=== PATIENT | male | born 1975 | race Caucasian/White ===

== ENCOUNTER 2020-09-04 18:39 | Emergency (ER) | payer BC ==
[2020-09-04] MEDS ORDERED: Sodium Chloride 0.9% 10 ML Syringe FLUSH PRN (18:50)
[2020-09-04] MEDS ORDERED: HYDROmorphone 1 MG/ML Syringe IVPUSH ONE (18:52)
[2020-09-04] MEDS ORDERED: Piperacillin/Tazobactam 4.5 GM in Sodium Chloride 0.9% 100 ML IV ONE (18:52)
[2020-09-04] MEDS ORDERED: Diphtheria,Pertussis(Acell),Tetanus Vaccine 0.5 ML Syringe IM ONE (18:54)
[2020-09-04] MEDS ORDERED: Lactated Ringers 1,000 ML IV SCH (19:00)
--- NOTE | 2020-09-04 20:06 | EDM.PDOC ---
ED HPI GENERAL MEDICAL PROBLEM - General Chief Complaint: Lower Extremity Injury/Pain Stated Complaint: FOOT INJURY Time Seen by Provider: 09/04/20 18:47 Source of Information: Reports: Patient, Family History Limitations: Reports: No Limitations - History of Present Illness INITIAL COMMENTS - FREE TEXT/NARRATIVE: The patient presents with a left foot laceration. 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 He has no other injuries. His tetanus is not up to date. He has no fever, chills, cough, congestion, runny nose, chest pain or shortness of breath. He has no medical problems. He last ate at 9:30 am. Onset: Sudden Duration: Minutes: Location: Reports: Lower Extremity, Right (foot) Quality: Reports: Sharp Severity: Severe Improves with: Reports: Immobilization Worsens with: Reports: Movement Context: Reports: Trauma (stepped on by cow) Associated Symptoms: Reports: No Other Symptoms Left Feet Pain Score (Numeric/FACES): 10 - Related Data Allergies Allergy/AdvReac Type Severity Reaction Status Date / Time No Known Allergies Allergy Verified 09/25/14 19:53 Home Meds: Home Meds Hydrocodone/Acetaminophen [Hydrocodone-Acetamin 5-325 mg] 1 - 2 each PO Q6H PRN #15 tablet 09/04/20 [Rx] cephALEXin [Keflex] 500 mg PO Q6H #40 cap 09/04/20 [Rx] Past Medical History Other Musculoskeletal History: femoral hernia Review of Systems - Review of Systems Review Of Systems: See Below Constitutional: Reports: No Symptoms Eyes: Reports: No Symptoms Ears: Reports: No Symptoms Nose: Reports: No Symptoms Mouth/Throat: Reports: No Symptoms Respiratory: Reports: No Symptoms Cardiovascular: Reports: No Symptoms GI/Abdominal: Reports: No Symptoms Genitourinary: Reports: No Symptoms Musculoskeletal: Reports: Other (Left foot injury) ED EXAM, GENERAL - Physical Exam Exam: See Below Exam Limited By: No Limitations General Appearance: Alert, Moderate Distress Ears: Normal External Exam Nose: Normal Inspection Head: Atraumatic, Normocephalic Neck: Normal Inspection Respiratory/Chest: No Respiratory Distress, Lungs Clear, Normal Breath Sounds Cardiovascular: Regular Rate, Rhythm, No Edema, No Murmur GI/Abdominal: Soft, Non-Tender, No Organomegaly, No Mass Extremities: Other (2nd and 3rd toes both have lacerations and near degloving) ED TRAUMA EXTREMITY PROCEDURES - Laceration/Wound Repair Left Foot Lac/Wound Length In cm: 10 Appearance: Subcutaneous, Irregular, Clean Distal NVT: Neuro & Vascular Intact, No Tendon Injury Anesthetic Type: Local Local Anesthesia - Lidocaine (Xylocaine): 1% Plain Skin Prep: Saline Saline Irrigation (cc's): 500 Exploration/Debridement/Repair: Wound Explored, In a Bloodless Field, Explored to Base Closed With: Sutures Suture Size: 4-0 # of Sutures: 17 Suture Type: Nylon, Interrupted, Simple Tetanus Status Addressed: Yes Complications: No Course - Vital Signs Last Recorded V/S: Last Vital Signs Temp 97.1 F 09/04/20 18:54 Pulse 107 H 09/04/20 18:54 Resp 24 H 09/04/20 18:54 BP 130/94 H 09/04/20 18:54 Pulse Ox 91 L 09/04/20 18:54 - Orders/Labs/Meds Orders: Active Orders 24 hr Category Date Time Status Cardiac Monitoring [RC] . DIRECTED Care 09/04/20 18:50 Active Peripheral IV Care [RC] . DIRECTED Care 09/04/20 18:51 Active Vaccines to be Administered [RC] PER UNIT ROUTINE Care 09/04/20 18:56 Active Foot Comp Min 3V Lt [CR] Stat Exams 09/04/20 18:51 Taken Lactated Ringers [Ringers, Lactated] 1,000 ml Med 09/04/20 19:00 Active IV ASDIRECTED Sodium Chloride 0.9% [Saline Flush] Med 09/04/20 18:50 Active 10 ml FLUSH ASDIRECTED PRN Peripheral IV Insertion Adult [OM.PC] Stat Oth 09/04/20 18:50 Ordered Medication Orders Lactated Ringer's (Ringers, Lactated) 1,000 mls @ 125 mls/hr IV ASDIRECTED RAMSEY Last Admin: 09/04/20 19:27 Dose: 125 mls/hr Documented by: ELO Sodium Chloride (Sodium Chloride 0.9% 10 Ml Syringe) 10 ml FLUSH ASDIRECTED PRN PRN Reason: Keep Vein Open Last Admin: 09/04/20 19:42 Dose: 10 ml Documented by: ELO Labs: Laboratory Tests 09/04/20 09/04/20 Range/Units 18:50 18:50 WBC 5.47 (4.23-9.07) K/mm3 RBC 5.60 (4.63-6.08) M/mm3 Hgb 15.9 (13.7-17.5) gm/dl Hct 45.6 (40.1-51.0) % MCV 81.4 (79.0-92.2) fl MCH 28.4 (25.7-32.2) pg MCHC 34.9 (32.2-35.5) g/dl RDW Std Deviation 38.3 (35.1-43.9) fL Plt Count 234 (163-337) K/mm3 MPV 11.0 (9.4-12.3) fl Neut % (Auto) 53.2 (34.0-67.9) % Lymph % (Auto) 31.6 (21.8-53.1) % [place] % (Auto) 12.1 (5.3-12.2) % Eos % (Auto) 1.8 (0.8-7.0) Baso % (Auto) 0.9 (0.1-1.2) % Neut # (Auto) 2.91 (1.78-5.38) K/mm3 Lymph # (Auto) 1.73 (1.32-3.57) K/mm3 [place] # (Auto) 0.66 (0.30-0.82) K/mm3 Eos # (Auto) 0.10 (0.04-0.54) K/mm3 Baso # (Auto) 0.05 (0.01-0.08) K/mm3 Sodium 142 (136-145) mEq/L Potassium 3.8 (3.5-5.1) mEq/L Chloride 105 (98-107) mEq/L Carbon Dioxide 22 (21-32) mEq/L Anion Gap 18.8 H (5-15) BUN 15 (7-18) mg/dL Creatinine 1.6 H (0.7-1.3) mg/dL Est Cr Clr Drug Dosing 70.42 mL/min Estimated GFR (MDRD) 47 (>60) mL/min BUN/Creatinine Ratio 9.4 L (14-18) Glucose 138 H (70-99) mg/dL Calcium 9.1 (8.5-10.1) mg/dL Total Bilirubin 0.5 (0.2-1.0) mg/dL AST 27 (15-37) U/L ALT 66 H (16-63) U/L Alkaline Phosphatase 57 (46-116) U/L Total Protein 7.5 (6.4-8.2) g/dl Albumin 4.3 (3.4-5.0) g/dl Globulin 3.2 gm/dL Albumin/Globulin Ratio 1.3 (1-2) Meds: Medications Generic Name Dose Route Start Last Admin Trade Name Freq PRN Reason Stop Dose Admin Lactated Ringer's 1,000 mls @ 125 mls/hr 09/04/20 19:00 09/04/20 19:27 Ringers, Lactated IV 125 mls/hr ASDIRECTED RAMSEY Administration Sodium Chloride 10 ml 09/04/20 18:50 09/04/20 19:42 Sodium Chloride 0.9% 10 Ml Syringe FLUSH 10 ml ASDIRECTED PRN Administration Keep Vein Open Discontinued Medications Generic Name Dose Route Start Last Admin Trade Name Freq PRN Reason Stop Dose Admin Diphtheria/Tetanus/Acell Pertussis 0.5 ml 09/04/20 18:54 09/04/20 19:44 Diphtheria,Pertussis(Acell),Tetanus Vaccine 0.5 Ml Syringe IM 09/04/20 18:55 0.5 ml .ONCE ONE Administration Hydromorphone HCl 1 mg 09/04/20 18:52 09/04/20 19:19 Hydromorphone 1 Mg/Ml Syringe IVPUSH 09/04/20 18:53 1 mg ONETIME ONE Administration Hydromorphone HCl 0.5 mg 09/04/20 20:33 09/04/20 20:40 Hydromorphone 0.5 Mg/0.5 Ml Syringe IVPUSH 09/04/20 20:34 0.5 mg ONETIME ONE Administration Piperacillin Sod/Tazobactam 100 mls @ 200 mls/hr 09/04/20 18:52 09/04/20 19:19 Sod 4.5 gm/ Sodium Chloride IV 09/04/20 19:21 200 mls/hr ONETIME ONE Administration Lidocaine HCl 20 ml 09/04/20 20:08 09/04/20 20:40 Lidocaine 1% 20 Ml Mdv INJECT 09/04/20 20:09 20 ml ONETIME ONE Administration Lidocaine HCl 20 ml 09/04/20 20:11 09/04/20 20:40 Lidocaine 1% 10 Ml Mdv INJECT 09/04/20 20:12 20 ml ONETIME ONE Administration - Re-Assessments/Exams Free Text/Narrative Re-Assessment/Exam: 09/04/20 20:06 I ordered an IV LR at 125ml/hr, dilaudid, zosyn 4.5grams IV, labs and an x-ray. His labs look good. The x-ray does not show any fracture. 09/04/20 21:20 I was able to suture the skin back. The tendons were intact. I called Dr Noguera and he will see him tomorrow. I will get him on keflex, a walking boot and something for pain. Departure - Departure Time of Disposition: 21:25 Disposition: Home, Self-Care 01 Condition: Good Clinical Impression: Crush injury of left foot Qualifiers: Encounter type: initial encounter Qualified Code(s): S97.82XA - Crushing injury of left foot, initial encounter Laceration of left foot Qualifiers: Encounter type: initial encounter Qualified Code(s): S91.312A - Laceration without foreign body, left foot, initial encounter - Discharge Information *PRESCRIPTION DRUG MONITORING PROGRAM REVIEWED*: Not Applicable *COPY OF PRESCRIPTION DRUG MONITORING REPORT IN PATIENT KAT: Not Applicable Prescriptions: Hydrocodone/Acetaminophen [Hydrocodone-Acetamin 5-325 mg] 1 - 2 each PO Q6H PRN #15 tablet PRN Reason: Pain cephALEXin [Keflex] 500 mg PO Q6H #40 cap Referrals: PCP,None [Primary Care Provider] - Hema Noguera MD [Physician] - 1 Day Forms: ED Department Discharge Additional Instructions: Soak your foot in warm soapy water 2 times per day and apply antibiotic ointment after. Take the keflex 4 times per day for 10 days. Take tylenol or motrin for pain. If that does not help, try the hydrocodone. Wear the walking boot to protect the laceration. Follow up with Dr Noguera tomorrow at 9:30. You do not need to call just show up. Please return if you are worse. Sepsis Event Note (ED) - Evaluation Sepsis Screening Result: No Definite Risk - Focused Exam Vital Signs: Vital Signs Temp Pulse Resp BP Pulse Ox 09/04/20 18:54 97.1 F 107 H 24 H 130/94 H 91 L - My Orders Last 24 Hours: My Active Orders 09/04/20 18:50 Cardiac Monitoring [RC] . DIRECTED Sodium Chloride 0.9% [Saline Flush] 10 ml FLUSH ASDIRECTED PRN Peripheral IV Insertion Adult [OM.PC] Stat 09/04/20 18:51 Peripheral IV Care [RC] . DIRECTED Foot Comp Min 3V Lt [CR] Stat 09/04/20 18:56 Vaccines to be Administered [RC] PER UNIT ROUTINE 09/04/20 19:00 Lactated Ringers [Ringers, Lactated] 1,000 ml IV ASDIRECTED - Assessment/Plan Last 24 Hours: My Active Orders 09/04/20 18:50 Cardiac Monitoring [RC] . DIRECTED Sodium Chloride 0.9% [Saline Flush] 10 ml FLUSH ASDIRECTED PRN Peripheral IV Insertion Adult [OM.PC] Stat 09/04/20 18:51 Peripheral IV Care [RC] . DIRECTED Foot Comp Min 3V Lt [CR] Stat 09/04/20 18:56 Vaccines to be Administered [RC] PER UNIT ROUTINE 09/04/20 19:00 Lactated Ringers [Ringers, Lactated] 1,000 ml IV ASDIRECTED
[2020-09-04] MEDS ORDERED: Lidocaine 1% 20 ML MDV INJECT ONE (20:08)
[2020-09-04] MEDS ORDERED: Lidocaine 1% 10 ML MDV INJECT ONE (20:11)
[2020-09-04] MEDS ORDERED: HYDROmorphone 0.5 MG/0.5 ML Syringe IVPUSH ONE (20:33)
[2020-09-04 22:00] VITALS: BP 143/84; PULSE 89
--- NOTE | 2020-09-05 06:35 | CR ---
Left foot: 4 views of the left foot were obtained. Comparison: No prior foot exam is available. Minimal calcification is seen at the attachment of the Achilles tendon to the calcaneus. Distal soft tissue bandage is noted. No acute fracture, dislocation or other bony abnormality is appreciated. Impression: 1. No acute osseous abnormality is appreciated on left foot exam. Diagnostic code #2
== END 2020-09-04 22:00 | disposition home or self-care (01) ==
LOC: JD.ED 18:39
DX: S97.82XA Crushing injury of left foot, initial encounter (principal); S91.312A Laceration without foreign body, left foot, initial encounter; Z23 Encounter for immunization; W26.8XXA Contact with other sharp object(s), not elsewhere classified, initial encounter
CPT/HCPCS: 12004; 36415; 73630; 80053; 85025; 90471; 90715; 96365; 96375; 96376; 99283; J1170; J2543; J7120

== ENCOUNTER 2020-09-30 09:06 | Day surgery (SDC) | payer BC ==
[2020-09-30] MEDS ORDERED: Lactated Ringers 1,000 ML IV SCH (10:30)
--- NOTE | 2020-09-30 10:30 | PCM.PREANE ---
Preanesthetic Assessment - Procedure Proposed Procedure: left foot I and D - Anesthesia/Transfusion/Family Hx Anesthesia History: Prior Anesthesia Without Reaction Family History of Anesthesia Reaction: No Transfusion History: No Prior Transfusion(s) - Review of Systems General: Other (hot spell last night for 1.5 hours after pop and antibiotic) Pulmonary: No Symptoms Cardiovascular: Other (heart beating hard last nigjht after antibiotic) Gastrointestinal: No Symptoms, Nausea (this am from hunger) Neurological: Seizure (in high school- got hit with book and needed cpr- brain swelling) - Physical Assessment NPO Status Date: 09/29/20 NPO Status Time: 21:00 Vital Signs: Last Vital Signs Temp 97.7 F 09/30/20 09:05 Pulse 72 09/30/20 09:05 Resp 16 09/30/20 09:05 BP 129/89 09/30/20 09:05 Pulse Ox 95 09/30/20 09:05 Height: 6 ft 3 in Weight: 112.037 kg ASA Class: 2 Mental Status: Alert & Oriented x3 Airway Class: Mallampati = 1 Dentition: Reports: Normal Dentition Thyro-Mental Finger Breadths: 3 Mouth Opening Finger Breadths: 3 ROM/Head Extension: Full Lungs: Clear to Auscultation, Normal Respiratory Effort Cardiovascular: Regular Rate, Regular Rhythm - Allergies Allergies/Adverse Reactions: Allergies Allergy/AdvReac Type Severity Reaction Status Date / Time No Known Allergies Allergy Verified 09/25/14 19:53 - Blood Blood Available: No - Acknowledgements Anesthesia Type Planned: MAC Pt an Appropriate Candidate for the Planned Anesthesia: Yes Alternatives and Risks of Anesthesia Discussed w Pt/Guardian: Yes Pt/Guardian Understands and Agrees with Anesthesia Plan: Yes PreAnesthesia Questionnaire - Past Health History Medical/Surgical History: Denies Medical/Surgical History Cardiovascular History: Reports: None Respiratory History: Reports: None Gastrointestinal History: Reports: Other (See Below) (sharp pain once in a while left upper abd) Genitourinary History: Reports: Renal Calculus Other Musculoskeletal History: femoral hernia Neurological History: Reports: None Psychiatric History: Reports: None Endocrine/Metabolic History: Reports: Obesity/BMI 30+ Oncologic (Cancer) History: Reports: None - Past Surgical History GI Surgical History: Reports: Colonoscopy - SUBSTANCE USE Tobacco Use Status *Q: Former Tobacco User Tobacco Use Within Last Twelve Months: No, Snuff/Dip (in past) Second Hand Smoke Exposure: No Days Per Week of Alcohol Use: 1 Recreational Drug Use History: No - HOME MEDS Home Medications: Home Meds Hydrocodone/Acetaminophen [Hydrocodone-Acetamin 5-325 mg] 1 - 2 each PO Q6H PRN #15 tablet 09/04/20 [Rx] cephALEXin [Keflex] 500 mg PO Q6H #40 cap 09/04/20 [Rx] - CURRENT (IN HOUSE) MEDS Current Meds: Current Medications Lactated Ringer's (Ringers, Lactated) 1,000 mls @ 125 mls/hr IV ASDIRECTED RAMSEY Stop: 09/30/20 23:00
[2020-09-30] MEDS ORDERED: Lidocaine 1% 4 ML ONE (11:08)
[2020-09-30] MEDS ORDERED: Propofol 200 MG/20 ML SDV ONE ×2 (11:09→12:13)
[2020-09-30] MEDS ORDERED: Midazolam 1 MG/ML 2 ML SDV ONE (11:09)
[2020-09-30] MEDS ORDERED: fentaNYL 100 MCG/2 ML SDV ONE (11:10)
[2020-09-30] MEDS ORDERED: Bupivacaine 0.25% 10 ML SDV ONE (11:35)
[2020-09-30] MEDS ORDERED: Lidocaine 1% 30 ML SDV ONE (11:36)
[2020-09-30] MEDS ORDERED: Ketorolac 30 MG/ML SDV ONE (11:55)
[2020-09-30] MEDS ORDERED: ceFAZolin 1 GM Vial ONE (11:55)
[2020-09-30] MEDS ORDERED: Ondansetron 4 MG/2 ML SDV ONE (11:55)
[2020-09-30] MEDS ORDERED: Lactated Ringers 1,000 ML ONE (12:17)
--- NOTE | 2020-09-30 12:48 | PCM48HPAN ---
Post Anesthesia Note - EVALUATION WITHIN 48HRS OF ANESTHETIC Vital Signs in Normal Range: Yes Patient Participated in Evaluation: Yes Respiratory Function Stable: Yes Airway Patent: Yes Cardiovascular Function Stable: Yes Hydration Status Stable: Yes Pain Control Satisfactory: Yes Nausea and Vomiting Control Satisfactory: Yes Mental Status Recovered: Yes Vital Signs: Last Vital Signs Temp 36.5 C 09/30/20 09:05 Pulse 72 09/30/20 09:05 Resp 16 09/30/20 09:05 BP 129/89 09/30/20 09:05 Pulse Ox 95 09/30/20 09:05
[2020-09-30 14:11] VITALS: BP 134/82; PULSE 61
--- NOTE | 2020-10-07 16:46 | PCM.OPNOTE ---
- General Post-Op/Procedure Note Date of Surgery/Procedure: 09/30/20 Operative Procedure(s): irrigation and debridement of left foot dorsal wound Pre Op Diagnosis: left foot dorsal laceration Post-Op Diagnosis: Same Anesthesia Technique: Local, MAC Primary Surgeon: Hema Noguera Anesthesia Provider: Tania Hernandez Galley Stripper: Maddy Vargas in mLs: 5 Complications: None Condition: Good
--- NOTE | 2020-10-07 17:14 | OR ---
DATE OF OPERATION: 09/30/2020 SURGEON: Hema Noguera MD OPERATION PERFORMED: Irrigation and debridement, 2 sq cm of left foot dorsal wound. PREOPERATIVE DIAGNOSIS: Left foot dorsal laceration with infection. POSTOPERATIVE DIAGNOSIS: Left foot dorsal laceration with infection. ANESTHESIA: Technique: Local MAC. ANESTHESIA PROVIDER: Tania Hernandez CRNA POLICE INVESTIGATOR: Maddy Vargas PA-C. ESTIMATED BLOOD LOSS: Less than 5 mL. COMPLICATIONS: None. CONDITION: Stable. DESCRIPTION OF PROCEDURE: The patient was identified in the preoperative holding area. Proper site was marked and identified by the surgeon. The patient was taken back to the operating theater, where after adequate anesthesia, the patient's left lower extremity was sterilely prepped and draped in the usual sterile fashion. OR time-out was performed. The patient received 2 g IV Ancef. At this time, 1% lidocaine without epinephrine and 0.25% Marcaine without epinephrine were used to anesthetize the dorsum of the foot around the laceration. At this time, the remaining stitches were removed. There was noted to have dehiscence of a portion of the wound with very medial portion, roughly 1 inch was healed with good eschar that was solid, but there was an open area between his second and third toes as well as some devitalized tissue. There was no gross pus or purulence that did come out of the wound, no foul-smelling odor. At this time, there was some tissue though that was nonviable. I did debride 2 cm x 2 cm of devitalized tissue as well as skin edges that were macerated. At this time, I then irrigated with 3 L normal saline with cysto tubing through the wound. 3-0 nylon sutures, simple sutures were used for closure of the skin. We did place a sterile soft dressing, dry dressing. At this time, the patient was placed back in his CAM boot and sent to PACU in stable condition. MMODAL /[id number]
== END 2020-09-30 13:57 | disposition home or self-care (01) ==
LOC: JD.SDS 09:06
PROVIDERS: ATTEND Orthopaedic Surgery
DX: S91.312A Laceration without foreign body, left foot, initial encounter (principal); E66.9 Obesity, unspecified; Z79.899 Other long term (current) drug therapy; Z87.891 Personal history of nicotine dependence; Z68.30 Body mass index [BMI] 30.0-30.9, adult
CPT/HCPCS: 11042; 87641; J0690; J1885; J2250; J2405; J2704; J3010; J3490; J7120; 00400